=== PATIENT | female | born 1990 | race Caucasian/White ===

== ENCOUNTER → 2017-01-26 | Outpatient (CLI) | payer OTHER ==
[~2017-01-26] VITALS: Ht 165.1 cm; Wt 110.0 kg
[~2017-01-26] MED LIST: PRENATAL TABLE1 EAC3 PO
[2017-01-26 07:18] VITALS: BP 126/61
== END | disposition home or self-care (01) ==
LOC: IVINF 07:00
DX: Z31.82 Encounter for Rh incompatibility status (principal); Z3A.28 28 weeks gestation of pregnancy
CPT/HCPCS: 96372; J2790

== ENCOUNTER 2017-04-11 11:54 | Inpatient (IN) | payer OTHER ==
[~2017-04-11] VITALS: Ht 165.1 cm; Wt 127.9 kg
[2017-04-11] VITALS (21 sets, daily range): BP systolic 100–155; BP diastolic 44–89
[2017-04-11 13:01] LABS: EOSINOPHIL (%) 0.1 % (0-5); HEMATOCRIT 40.3 % (36.0-46.0); IMMATURE GRANULOCYTE (%) 0.7 % (0.0-0.7); IMMATURE GRANULOCYTE COUNT 0.1 K/uL; INSTRUMENT ABS NEUTROPHIL CT 7.6 K/uL; LYMPHOCYTE COUNT 1.2 K/uL (1.0-2.8); MCH 30.5 PG (29.0-34.0); MCHC 35.2 G/DL (30.0-36.0); MCV 86.5 FL (83-99); MEAN PLAT.VOLUME 10.4 uM^3 (9.5-12.4); MONOCYTE (%) 5.8 % (3-12); MONOCYTE COUNT 0.6 K/uL (0-0.8); NEUTROPHIL (%) 80.5 % (45-76); NEUTROPHIL COUNT 7.6 K/uL (1.8-6.4); PLATELET COUNT 244 K/uL (156-360); RBC DIS.WIDTH-CV 14.2 % (11.8-14.6); RBC DIS.WIDTH-SD 43.9 % (39-53); RED BLOOD COUNT 4.66 M/uL (3.80-5.20); WHITE BLOOD COUNT 9.5 K/uL (4.1-10.2)
[2017-04-12] VITALS (14 sets, daily range): BP systolic 117–141; BP diastolic 58–78
[2017-04-12] MEDS ORDERED: IBUPROFEN800 MG PO (05:55)
[2017-04-13 07:58] VITALS: BP 118/60
[2017-04-13 14:46] VITALS: BP 130/63
[2017-04-13 23:45] VITALS: BP 133/74
== END 2017-04-14 12:25 | disposition home or self-care (01) | DRG 775 ==
LOC: LDRP-OP 11:54 → 2WEST 11:56 → LDRP-OP 05-05 10:05
PROVIDERS: Advanced Practice Midwife
DX: O70.1 Second degree perineal laceration during delivery (principal); O48.0 Post-term pregnancy; O99.214 Obesity complicating childbirth; E66.9 Obesity, unspecified; Z68.38 Body mass index [BMI] 38.0-38.9, adult; Z37.0 Single live birth; Z3A.41 41 weeks gestation of pregnancy; Z23 Encounter for immunization
CPT/HCPCS: 85025; 90686; C1755; G0378; J1200; J3010; J7120